=== PATIENT | female | born 1980 | race African-American/Black ===

== ENCOUNTER 2021-02-03 09:40 | Emergency (ER) | payer SELFPAY | END 2021-02-03 10:40 | disposition home or self-care (01) | LOC: MADERS 09:40 | DX: S90.32XA Contusion of left foot, initial encounter (principal); W22.8XXA Striking against or struck by other objects, initial encounter ==

== ENCOUNTER 2025-06-28 12:46 | Emergency (ER) | payer SELFPAY | END 2025-06-28 14:55 | disposition home or self-care (01) | LOC: MADERS 12:46 | DX: S93.401A Sprain of unspecified ligament of right ankle, initial encounter (principal); X50.1XXA Overexertion from prolonged static or awkward postures, initial encounter | CPT/HCPCS: 96372; 99283; J1885 ==